=== PATIENT | male | born 1990 | race Caucasian/White ===

== ENCOUNTER 2017-05-13 12:48 | Emergency (ER) | payer OTHER ==
[~2017-05-13] VITALS: Ht 182.9 cm; Wt 66.0 kg
[2017-05-13 12:48] VITALS: BP 195/83; PULSE 117; RESP 20; TEMP 98.4; O2SAT 97
[2017-05-13 12:59] VITALS: BP 131/94; PULSE 104; RESP 16; O2SAT 98
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
== END 2017-05-13 14:45 | disposition home or self-care (01) ==
LOC: NEPK 12:48
DX: M54.5 Low back pain (principal); V13.4XXA Pedal cycle driver injured in collision with car, pick-up truck or van in traffic accident, initial encounter; Y93.55 Activity, bike riding; Y92.410 Unspecified street and highway as the place of occurrence of the external cause
CPT/HCPCS: 99282